=== PATIENT | male | born 1960 | race Caucasian/White ===

== ENCOUNTER 2016-10-21 19:43 | Emergency (ER) | payer OTHER ==
[2016-10-21 21:46] VITALS: BP 132/85
== END 2016-10-21 21:46 | disposition home or self-care (01) ==
LOC: ED 19:43
DX: J98.01 Acute bronchospasm (principal); N40.0 Benign prostatic hyperplasia without lower urinary tract symptoms; Z88.8 Allergy status to other drugs, medicaments and biological substances